=== PATIENT | male | born 1990 | race American Indian/Alaskan Native ===

== ENCOUNTER 2025-03-23 16:34 | Emergency (ER) | payer OTHER ==
[~2025-03-23] VITALS: Ht 177.8 cm; Wt 131.5 kg
[2025-03-23 16:57] VITALS: BP 157/119
[2025-03-23] MEDS ORDERED: IBUP800 PO (17:54)
== END 2025-03-23 17:55 | disposition home or self-care (01) ==
LOC: ER 16:34
DX: S92.352A Displaced fracture of fifth metatarsal bone, left foot, initial encounter for closed fracture (principal); X50.1XXA Overexertion from prolonged static or awkward postures, initial encounter
CPT/HCPCS: 73630; 99283-25